=== PATIENT | male | born 1985 | race Caucasian/White ===

== ENCOUNTER 2016-11-19 11:49 | Emergency (ER) | payer OTHER ==
[2016-11-19 11:58] VITALS: BP 130/87
[2016-11-19] MEDS ORDERED: Diphtheria,Pertussis(Acell),Tetanus Vaccine 0.5 ML SDV IM ONE (11:58)
[2016-11-19] MEDS ORDERED: Lidocaine 1% 50 ML MDV INJECT ONE (11:59)
--- NOTE | 2016-11-19 12:17 | EDM.PDOC ---
ED HPI GENERAL MEDICAL PROBLEM - General Chief Complaint: Laceration Stated Complaint: LEFT POINTER FINGER Time Seen by Provider: 11/19/16 11:58 Source of Information: Reports: Patient History Limitations: Reports: No Limitations - History of Present Illness INITIAL COMMENTS - FREE TEXT/NARRATIVE: The patient cut his left index finger on a slip nut at 1155 at work. He is unsure of his last tetanus. He is right handed. Onset: Sudden Duration: Minutes: Location: Reports: Upper Extremity, Left (Index finger) Quality: Reports: Sharp Severity: Mild Improves with: Reports: None Worsens with: Reports: None Context: Reports: Other (Work) Associated Symptoms: Reports: No Other Symptoms Left Hand Pain Score (Numeric/FACES): 6 - Related Data Allergies Allergy/AdvReac Type Severity Reaction Status Date / Time No Known Allergies Allergy Verified 11/19/16 11:57 Home Meds: Home Meds . [No Known Home Meds] 11/19/16 [History] Past Medical History - Past Surgical History HEENT Surgical History: Reports: Oral Surgery Social & Family History - Family History Family Medical History: Noncontributory - Tobacco Use Smoking Status *Q: Never Smoker - Caffeine Use Caffeine Use: Reports: Coffee, Soda, Tea - Recreational Drug Use Recreational Drug Use: No ED ROS GENERAL - Review of Systems Review Of Systems: See Below Constitutional: Reports: No Symptoms HEENT: Reports: No Symptoms Respiratory: Reports: No Symptoms Cardiovascular: Reports: No Symptoms GI/Abdominal: Reports: No Symptoms Musculoskeletal: Reports: Other (Laceration to the left index finger) ED EXAM, SKIN/RASH Exam: See Below Exam Limited By: No Limitations General Appearance: Alert, No Apparent Distress Ears: Normal External Exam Nose: Normal Inspection Head: Atraumatic, Normocephalic Neck: Normal Inspection Respiratory/Chest: No Respiratory Distress Extremities: Other (0.5cm laceration to the tip of his left index finger and a smaller laceration along the edge of the nail.) ED SKIN PROCEDURES - Laceration/Wound Repair Right Finger Lac/Wound length In cm: 0.5 Appearance: Linear Distal NVT: Neuro & Vascular Intact, No Tendon Injury Anesthetic Type: Digital Local Anesthesia - Lidocaine (Xylocaine): 1% Plain Skin Prep: Saline Exploration/Debridement/Repair: Wound Explored, In a Bloodless Field, Explored to Base Closed with: Sutures Suture Size: other (5-0) # of Sutures: 3 Suture Type: Other (Vicryl) Complications: No Course - Vital Signs Last Recorded V/S: Last Vital Signs Temp 97.7 F 11/19/16 11:53 Pulse 97 11/19/16 11:53 Resp 16 11/19/16 11:53 BP 130/87 11/19/16 11:53 Pulse Ox 98 11/19/16 11:53 - Orders/Labs/Meds Orders: Active Orders 24 hr Category Date Time Status Vaccines to be Administered [RC] PER UNIT ROUTINE Care 11/19/16 11:58 Active Fingers Second Digit Lt F1 [CR] Stat Exams 11/19/16 11:58 Taken Meds: Medications Discontinued Medications Generic Name Dose Route Start Last Admin Trade Name Stephane PRN Reason Stop Dose Admin Diphtheria/Tetanus/Acell Pertussis 0.5 ml 11/19/16 11:58 11/19/16 12:11 Adacel IM 11/19/16 11:59 0.5 ml .ONCE ONE Administration Lidocaine HCl 50 ml 11/19/16 11:59 11/19/16 12:12 Xylocaine 1% INJECT 11/19/16 12:00 50 ml ONETIME ONE Administration - Re-Assessments/Exams Free Text/Narrative Re-Assessment/Exam: 11/19/16 12:16 I updated his tetanus and did an x-ray that did not show any metal and no fracture. 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 We placed 3 absorbable sutures. Departure - Departure Time of Disposition: 12:35 Disposition: Home, Self-Care 01 Condition: Good Clinical Impression: Laceration of right index finger Qualifiers: Encounter type: initial encounter Damage to nail status: without damage Foreign body presence: without foreign body Qualified Code(s): S61.210A - Laceration without foreign body of right index finger without damage to nail, initial encounter - Discharge Information Referrals: PCP,None [Primary Care Provider] - Forms: ED Department Discharge Additional Instructions: Soak your finger in warm soapy water 2 times per day and apply antibiotic ointment for 5 days. The sutures should fall out in 7 to 10 days. Please return if you have any redness, swelling, pain or drainage. These are signs of an infection and you may then need antibiotics. - My Orders Last 24 Hours: My Active Orders 11/19/16 11:58 Vaccines to be Administered [RC] PER UNIT ROUTINE Fingers Second Digit Lt F1 [CR] Stat - Assessment/Plan Last 24 Hours: My Active Orders 11/19/16 11:58 Vaccines to be Administered [RC] PER UNIT ROUTINE Fingers Second Digit Lt F1 [CR] Stat
--- NOTE | 2016-11-20 07:44 | CR ---
Left second finger: Four views of the left second finger were obtained. Comparison: No prior finger study. Joint spaces are maintained. No fracture, dislocation or other bony abnormality is appreciated. Impression: 1. No acute bony abnormality is identified on four-view left second finger study. Diagnostic code #1
== END 2016-11-19 12:45 | disposition home or self-care (01) ==
LOC: JD.ED 11:49
DX: S61.211A Laceration without foreign body of left index finger without damage to nail, initial encounter (principal); W26.8XXA Contact with other sharp object(s), not elsewhere classified, initial encounter; Z23 Encounter for immunization
CPT/HCPCS: 12001; 73140-26-F1; 73140-F1; 90471; 90715; 99283-25

== ENCOUNTER 2021-06-09 11:41 | Day surgery (SDC) | payer OTHER ==
[2021-06-09] MEDS: Lactated Ringers 1,000 ML IV SCH ×2 (11:00→18:46)
[~2021-06-09 11:41] MED LIST: Acetaminophen 325 MG Tab PO SCH; Lactated Ringers 1,000 ML ONE; Lidocaine 1%/Sod Bicarbonate in NS 8.4% 1 ML Syringe IDERM PRN; Midazolam 1 MG/ML 2 ML SDV ONE; Morphine 8 MG, EPINEPHrine 0.3 MG, Cefuroxime 750 MG, Ketorolac 30 MG, Sodium Chloride ... PRN; Pregabalin 25 MG Cap PO SCH; Propofol 200 MG/20 ML SDV ONE; Sodium Chloride 0.9% 10 ML Syringe FLUSH PRN; Vancomycin 1 GM SDV ONE; ceFAZolin 1 GM Vial ONE; fentaNYL 100 MCG/2 ML SDV ONE; oxyCODONE ER 10 MG TAB.ER PO SCH
[2021-06-09] MEDS ORDERED: ePHEDrine 50 MG/ML SDV ONE (12:40)
[2021-06-09] MEDS ORDERED: Propofol 200 MG/20 ML SDV ONE ×3 (13:26→14:06)
[2021-06-09] MEDS ORDERED: fentaNYL 100 MCG/2 ML SDV IVPUSH PRN (13:36)
[2021-06-09] MEDS ORDERED: HYDROmorphone 0.5 MG/0.5 ML Syringe IVPUSH PRN (13:36)
[2021-06-09] MEDS ORDERED: Ondansetron 4 MG/2 ML SDV IVPUSH PRN (13:36)
[2021-06-09] MEDS ORDERED: Lactated Ringers 1,000 ML ONE (14:25)
[2021-06-09] MEDS ORDERED: Ketorolac 30 MG/ML SDV ONE (14:33)
[2021-06-09] MEDS ORDERED: oxyCODONE 5 MG Tab PO ONE (16:39)
[2021-06-09] MEDS ORDERED: Cyclobenzaprine 10 MG Tab PO PRN (18:11)
[2021-06-09] MEDS: Sodium Chloride 0.9% 10 ML Syringe FLUSH SCH (18:43)
[2021-06-09] MEDS: Acetaminophen/HYDROcodone 325-5 MG Tab PO PRN (19:56)
[2021-06-10] MEDS: Acetaminophen/HYDROcodone 325-5 MG Tab PO PRN ×2 (02:57→08:52)
[2021-06-10 09:42] VITALS: BP 107/63; PULSE 78
== END 2021-06-10 09:30 | disposition home or self-care (01) ==
LOC: JD.SDS 11:41 → JD.MS 18:26 → JD.SDS 06-10 09:20
PROVIDERS: ATTEND Orthopaedic Surgery
DX: M16.12 Unilateral primary osteoarthritis, left hip (principal); M87.852 Other osteonecrosis, left femur; I10 Essential (primary) hypertension; E11.9 Type 2 diabetes mellitus without complications; Z87.891 Personal history of nicotine dependence; Z79.82 Long term (current) use of aspirin; Z79.899 Other long term (current) drug therapy
CPT/HCPCS: 0055T; 27130; 36415; 73501; 86850; 86900; 86901; 97110; 97116; 97161; A9270; C1713; C1776; J0171; J0690; J0697; J1885; J2250; J2270; J2370; J2405; J2704; J3010; J3370; J7120; 01214

== ENCOUNTER 2021-06-13 21:25 | Emergency (ER) | payer OTHER | END 2021-06-13 22:05 | LOC: JD.ED 21:25 | DX: Z48.00 Encounter for change or removal of nonsurgical wound dressing (principal) | CPT/HCPCS: 99281 ==

== ENCOUNTER 2023-05-29 13:41 | Emergency (ER) | payer OTHER ==
[2023-05-29 14:24] LABS: BASOPHILS PERCENT AUTO 0.2 % (0.0-1.0); EOSINOPHILS ABSOLUTE AUTO 0.1 K/mm3 (0.0-0.4); EOSINOPHILS PERCENT AUTO 1.1 % (0.0-6.0); HEMATOCRIT 42.9 % (42.0-52.0); HEMOGLOBIN 14.8 gm/dl (14.0-18.0); IMMATURE GRAN ABSOLUTE AUTO 0.01 K/mm3 (0.00-0.05); IMMATURE GRAN PERCENT AUTO 0.2 % (0.0-0.4); LYMPHOCYTES ABSOLUTE AUTO 1.7 K/mm3 (1.0-4.8); LYMPHOCYTES PERCENT AUTO 30.5 % (24.0-44.0); MEAN CORPUSCULAR HEMOGLOBIN 28.5 pg (28.0-32.0); MEAN CORPUSCULAR HGB CONC 34.5 g/dl (32.0-36.0); MEAN CORPUSCULAR VOLUME 82.5 fl (83.0-99.0); MEAN PLATELET VOLUME 10.2 fl (9.4-12.4); MONOCYTES ABSOLUTE AUTO 0.2 K/mm3 (0.0-0.8); MONOCYTES PERCENT AUTO 4.2 % (0.0-8.0); NEUTROPHILS ABSOLUTE AUTO 3.5 K/mm3 (1.8-7.7); NEUTROPHILS PERCENT AUTO 63.8 % (41.0-71.0); PLATELET COUNT,PLT 218 K/mm3 (150-400); WHITE BLOOD CELL COUNT,WBC 5.45 K/mm3 (3.9-11.3)
[2023-05-29 14:49] LABS: BASE EXCESS ARTERIAL 0.5 (-2-2.0); O2 SATURATION ARTERIAL 93.8 % (96.0-97.0); PCO2 ARTERIAL 47.4 mmHg (35.0-45.0)
[2023-05-29 15:05] LABS: A/G RATIO 1.3 (1-2); ANION GAP 16.6 (5-15); BILIRUBIN TOTAL 0.4 mg/dL (0.2-1.0); CALCIUM 8.7 mg/dL (8.5-10.1); EST CRCL DRUG DOSING (CG) 99.18 mL/min; PROTEIN TOTAL,TP 7.1 g/dl (6.4-8.2)
[2023-05-29 15:10] LABS: POTASSIUM,K 3.6 mEq/L (3.5-5.1)
[2023-05-29 18:34] VITALS: BP 127/87; PULSE 83
== END 2023-05-29 16:25 | disposition home or self-care (01) ==
LOC: JD.ED 13:41
DX: T59.811A Toxic effect of smoke, accidental (unintentional), initial encounter (principal); X08.8XXA Exposure to other specified smoke, fire and flames, initial encounter
CPT/HCPCS: 36415; 36600; 71045; 71045-26; 80053; 82375; 82803; 83605; 85025; 99283